=== PATIENT | male | born 1970 | race Caucasian/White ===

== ENCOUNTER 2020-09-07 08:32 | Emergency (ER) | payer SELFPAY ==
[2020-09-07] VITALS (35 sets, daily range): BP systolic 90–151; BP diastolic 27–136; PULSE 114–152; RESP 14–34; TEMP 37.7; O2SAT 90–100
--- NOTE | ~2020-09-07 | CT_ITS ---
EXAMINATION: CT soft tissue neck chest wo DATE: 09/07/2020 11:24 INDICATION: Cough and shortness of breath. Neck swelling. Spider bite. TECHNIQUE: Computed tomography (CT) of the neck and chest was performed without intravenous contrast. Automated exposure control and iterative reconstruction technique were employed. The dose-length pro duct was 1095.47 mGy-cm. COMPARISON: None FINDINGS: CT NECK: There is an open wound of left anterior neck involving the subcutaneous fat with surrounding fat stranding. There are no pathologically enlarged lymph nodes. There is extensive dental disease. There is mild cervical spondylosis. CT CHEST: There are innumerable nodules scattered in the lungs bilaterally. Some the nodules are cavi tary. There are scattered airspace and groundglass opacities in the lungs with some small areas of ca vitation. The worse confluent disease is in right lung upper lobe. No pleural effusion. The heart siz e is normal. No pericardial effusion. There is diffuse hepatic steatosis. There are no pathologically enlarged lymph nodes. There is a small sliding hiatal hernia primarily composed of fat. There is mod erate thoracic spondylosis. IMPRESSION: 1. Diffuse lung disease, likely multifocal pneumonia and septic emboli. 2. Open wound of the left anterior neck involving the subcutaneous fat with cellulitis. No drainable abscess. 3. Extensive dental disease. Reviewed, dictated and finalized at location A. IMPRESSION: 1. Diffuse lung disease, likely multifocal pneumonia and septic emboli. 2. Open wound of the left anterior neck involving the subcutaneous fat with cesar lulitis. No drainable abscess. 3. Extensive dental disease.
--- NOTE | ~2020-09-07 | XR_ITS ---
EXAMINATION: XR chest 1V portable DATE: 09/07/2020 09:01 INDICATION: Cough. Shortness of breath. TECHNIQUE: A single frontal view of the chest was obtained. COMPARISON: None. FINDINGS: There are patchy airspace opacities involving all lung zones bilaterally, right worse than left. No pleural effusion or pneumothorax. The heart size is normal. IMPRESSION: 1. Diffuse lung disease, likely pneumonia. Follow-up radiographs are recommended to exclude right-eli ed malignancy. Reviewed, dictated and finalized at location A. IMPRESSION: 1. Diffuse lung disease, likely pneumonia. Follow-up radiographs are recommende d to exclude right-sided malignancy.
--- NOTE | 2020-09-07 08:46 | ECG_ITS ---
Measurements Intervals [place] Rate: 146 P: 3 VT: 126 QRS: 73 QRSD: 81 T: 55 QT: 270 QTc: 422 Interpretive Statements SINUS TACHYCARDIA, POSSIBLE ATRIAL FLUTTER BORDERLINE R WAVE PROGRESSION, ANTERIOR LEADS BASELINE ARTIFACT- I, II, III, AVR, AVL, AVF, V1 ABNORMAL ECG Electronically Signed On 09-07-2020 12:12:36 CDT by Blue Malcolm D.O.
--- NOTE | 2020-09-07 08:50 | ED.GENADULT ---
HPI - General Adult General Chief complaint: Shortness of Breath/Dyspnea Stated complaint: LOW BACK PAIN/DIFFICULTY BREATHING Time Seen by Provider: 09/07/20 08:34 Source: RN notes reviewed History of Present Illness HPI narrative: Patient presents to emergency department from home for multiple complaints. Patient states he has had a wound on his left anterior neck for the past 2 weeks that he believes is a spider bite states is progressively gotten larger and open he also notes that over the past several days has been having increasing chest pain throughout the anterior chest and lower back and shortness of breath. Patient denies having any fevers or chills abdominal pain nausea vomiting or any other symptoms. He states he went to [facility] last night and had a CT scan done while he was waiting in triage but left prior to being seen Related Data Allergies Allergy/AdvReac Type Severity Reaction Status Date / Time No Known Allergies Allergy Unverified 09/07/20 08:46 Review of Systems Review of Systems: Narrative: Gen.: Denies fevers or chills Eyes: Denies eye pain or visual change ENT: Denies congestion Respiratory: See HPI CV: Denies chest pain or palpitations GI: Denies abdominal pain nausea, emesis or diarrhea denies burning, urgency, frequency or hematuria Musculoskeletal: Denies back pain or muscle pain Neuro: Denies numbness, tingling, weakness or focal weakness Skin: See HPI see HPI Except as documented, all other systems reviewed and negative [facility] Past Medical History Medical History (Updated 09/07/20 @ 17:33 by Frandy Cooper DO) Essential hypertension Family History Family History Mother No problems noted. Father No problems noted. Social History Social History Tobacco type: e-cigarettes/vaping Alcohol intake: never Substance use: never Gender identity (if verbalized by the patient): Male Exam Narrative: Exam Narrative: APPEARANCE: No acute distress, nontoxic, resting in bed EYES: EOMI HEENT: Normocephalic, atraumatic, oral mucosa dry, airway patent Neck: No midline tenderness full range of motion, the left lateral anterior neck has an open wound with mild purulent drainage there is surrounding swelling and erythema RESPIRATORY: Mild respiratory distress sitting upright in bed speaking full sentences, coarse breath sounds at the bilateral lung crespo CARDIOVASCULAR: Tachycardic and regular without murmurs rubs or gallops. ABDOMINAL: Soft, nontender, nondistended, no rebound or guarding MUSCULOSKELETAl: Moves all extremities. No clubbing, cyanosis or edema. NEURO: Awake and alert x 4. Following commands, speech normal, no focal deficits SKIN:: Warm, dry. No rashes lesions or abrasions PSYCHIATRIC: Normal affect/mood, Course Course Emergency Course: Obtain records from [facility] from yesterday the patient had a CT scan of the neck with contrast at 8:45 PM on 09/06/2020 showed focal cutaneous irregularity with adjacent cutaneous thickening and surrounding inflammatory changes in the anterior lateral left upper neck findings may reflect a soft tissue cellulitis. No discrete drainable collection or abscess identified at this time. 2. Patchy groundglass and consolidative opacities in the left upper lungs. Partially imaged but concerning for multifocal infection could correlate for possibility of Covid infection Lab work at that time showed a white count of 21.8 with a creatinine of 1.55 sodium of 126 and a lactic acid of 2.2 Called and discussed with Dr. Lowe for ENT presentation work-up agrees with consult at this time Called discussed with Dr. Fiore presentation work-up request admission to the ICU at this time Called discussed with Dr. Schroeder for the ICU accepts admission to the ICU request patient received a CT scan o
[2020-09-07] MEDS: SODIUM CHLORIDE 0.9% IV 1,000 ML 999 ML IV CONT ×2 (08:56→10:19)
[2020-09-07] MEDS: MORPHINE SULFATE (*CRX) 2 MG/ML INJ IV PUSH (08:56)
[2020-09-07 09:08] LABS: Alveolar/Arterial O2 Gradient 92.2 mmHg; Base Excess ABG -5.2 mEq/l (+/-2.0); Device NASAL CANNULA; Fractional Inspired Oxygen 30 %; HCO3 ABG 19.8 mEq/l (22.0-26.0); Liters per Minute 2.5 LPM; Modified Allen's Test Pass; Oxygen Content ABG 21.1 %vol (16.0-22.0); Oxygen Saturation ABG 95.1 % (95.0-100.0); Oxyhemoglobin 93.6 % THb (90.0-100.0); PCO2 ABG 36.9 mmHg (35.0-45.0); PO2 ABG 78.3 mmHg (80.0-100.0); PO2 FiO2 Ratio Arterial Blood 2.61 %; Site Drawn LEFT RADIAL; pH ABG 7.347 (7.350-7.450)
[2020-09-07] MEDS: IPRATROPIUM BR 0.02% INH SOLN 0.5 MG/2.5 ML VIAL INHALATION ×2 (09:09→15:24)
--- NOTE | 2020-09-07 09:22 | PC.NURSE ---
Pt asked to give urine sample
[2020-09-07 09:45] LABS: Hematocrit 45.2 % (42.0-52.0); Hemoglobin 15.1 g/dL (14.0-18.0); Mean Corpuscular HGB Conc 33.4 g/dl (32-36); Mean Corpuscular Hemoglobin 30.3 pg (26-34); Mean Corpuscular Volume 90.6 fl (80-100); Mean Platelet Volume 10.8 fl (7.4-10.4); Platelet Count Result 194 k/mm3 (150-375); Red Blood Count 4.99 M/mm3 (4.6-6.20); Red Cell Distribution Width 13.4 % (11.5-14.5); White Blood Count 10.9 K/mm3 (4.5-10.0)
[2020-09-07 09:55] LABS: INR 1.2
[2020-09-07 09:56] LABS: Monocytes Absolute Manual 0.65 K/mm3 (0.1-0.90); Monocytes Percent Manual 6 % (3-9); Neutrophils Percent Manual 93 % (46-73); Partial Thromboplastin Time 30.1 SECONDS (22.3-36.8); Platelet Estimate Adequate (Adequate); Total Cells Counted 100
[2020-09-07 10:05] LABS: Albumin Level 3.8 g/dL (3.5-5.1); Alkaline Phosphatase 116 U/L (38-126); Anion Gap 13 mmol/L (8-16); Aspartate Amino Transferase 52 U/L (17-59); Bilirubin,Total 1.4 mg/dL (0.2-1.3); Blood Urea Nitrogen 31 mg/dL (9-20); Calcium 8.1 mg/dL (8.4-10.2); Carbon Dioxide 26 mmol/L (22-30); Chloride 89 mmol/L (98-107); Estimated CRCL calculation 53 ml/min; Estimated Glomerular Filt Rate 40; Glucose 191 mg/dL (75-110); Lactic Acid Reflex 4.4 mmol/L (0.7-2.1); Lipase 47 U/L (23-300); Potassium 3.8 mmol/L (3.4-5.0); Sodium 128 mmol/L (137-145)
[2020-09-07 10:09] LABS: NT Pro B Type Natriuretic Pept 2780 PG/ML (5-100); Troponin I 0.014 ng/mL (0.000-0.034)
[2020-09-07 10:10] LABS: Alanine Aminotransferase 23 U/L (4-50)
--- NOTE | 2020-09-07 10:22 | PC.NURSE ---
Pt unable to provide urine sample at this time
[2020-09-07 11:22] LABS: Add Urine Microscopic? YES; Appearance Urine Cloudy (Clear); Bilirubin Urine Negative (Negative); Blood Urine 2+ (Negative); Color Urine Amber (Yellow); Glucose Urine UA 1+ mg/dL (Negative); Ketones Urine Trace mg/dL (Negative); Leukocyte Esterase Ur Negative LEU/UL (Negative); Mucus Urine Rare /lpf; Nitrate Urine Negative (Negative); Protein Urine 2+ mg/dL (Negative); RBC Urine 0-2 /hpf (0-2); Squamous Epithelial Cell Urine Rare /hpf (Few)
[2020-09-07 11:25] LABS: Specific Grav Ur 1.039 (1.001-1.035)
[2020-09-07 12:43] LABS: Reflex Lactic Acid Yes or No Add Lactic
--- NOTE | 2020-09-07 13:19 | PC.NURSE ---
Pt Dr. Cooper, raise pt O2 to 4 L.
[2020-09-07] MEDS: MORPHINE SULFATE (*CRX) 2 MG/ML INJ 1 MG IV PUSH ×2 (13:47→14:41)
--- NOTE | 2020-09-07 14:20 | PC.NURSE ---
Pt accepted to [facility] ICU room 596. calling for transport
--- NOTE | 2020-09-07 14:52 | ECG_ITS ---
Measurements Intervals [place] Rate: 142 P: [place]: 0 QRS: 35 QRSD: 85 T: 18 QT: 287 QTc: 442 Interpretive Statements ATRIAL FIBRILLATION WITH RAPID VENTRICULAR RESPONSE DELAYED PRECORDIAL R/S TRANSITION BASELINE ARTIFACT- I, II, AVF ABNORMAL ECG Electronically Signed On 09-07-2020 15:25:46 CDT by Blue Malcolm D.O.
[2020-09-07] MEDS: AMIODARONE 150 MG/D5W 100 ML 150 MG/100 ML BAG 600 MG IV CONT (15:20)
[2020-09-07] MEDS: SODIUM CHLORIDE 0.9% IV 1,000 ML 100 ML IV CONT (15:21)
[2020-09-07] MEDS: AMIODARONE 360 MG/D5W 200 ML 360 MG/200 ML BAG 33.33 MG IV CONT (15:32)
--- NOTE | 2020-09-07 15:40 | PC.NURSE ---
Normal saline and Amiodirone Drip continued with transfer. Taken with Air evac
[2020-09-07 21:08] LABS: SARS-CoV-2 RNA PCR Negative
== END 2020-09-07 15:51 | disposition short-term general hospital (02) ==
LOC: ANHED 09:46 → ANHICU 14:31
PROVIDERS: Emergency Provider Emergency Medicine; PCP Family Medicine
DX: A41.9 Sepsis, unspecified organism (principal); R65.20 Severe sepsis without septic shock; J96.01 Acute respiratory failure with hypoxia; J18.9 Pneumonia, unspecified organism; J98.4 Other disorders of lung; I48.91 Unspecified atrial fibrillation; Z20.822 Contact with and (suspected) exposure to COVID-19; I10 Essential (primary) hypertension; R00.0 Tachycardia, unspecified; R94.31 Abnormal electrocardiogram [ECG] [EKG]; L03.221 Cellulitis of neck
CPT/HCPCS: 36415; 36600; 70490; 71045; 71250; 80053; 81001; 82805; 83605; 83690; 83880; 84484; 85025; 85610; 85730; 87040; 87077; 87186; 93005; 94640; 96361; 96365; 96366; 96367; 96375; 96376; 99291; C9803; J0131; J0282; J0456; J0696; J2270; J3370; J7030; U0003; U0005